=== PATIENT | female | born 1970 | race Caucasian/White ===

== ENCOUNTER → 2018-12-27 12:38 | Outpatient (CLI) | payer OTHER, MEDICAID, SELFPAY ==
--- NOTE | 2018-12-27 | DI.US.S_ITS ---
PROCEDURE: US ABDOMEN COMPLETE INDICATIONS: BENIGN NEOPLASM OF LIVER TECHNIQUE: Real-time scanning was performed of the abdominal and retroperitoneal organs, with image documentation. COMPARISON: [facility], CT, ABDOMEN/PELVIS WITH CONTRAST, 01/14/2018, 21:01. FINDINGS: Liver: Liver measures 17.9 cm in length and demonstrates normal echotexture. No discrete focal hepatic mass identified Gallbladder: Surgically absent Biliary ducts: Intrahepatic bile ducts are non-dilated. Extrahepatic bile duct caliber measures 4 mm. Normal is 6-7 mm or less in diameter, or 10 mm or less post-cholecystectomy. Pancreas: Visualized portions of the pancreas are sonographically normal. Spleen: Spleen is normal in size and homogeneous in echotexture. Kidneys: Kidneys are normal in size and echotexture. Right kidney measures 10.2 cm long; left kidney measures 10.5 cm long. No hydronephrosis or nephrolithiasis. No solid masses. Aorta: Visualized aorta is normal in caliber at less than 3 cm. Iliacs: Proximal common iliac arteries are normal in caliber at less than 2.5 cm. IVC: Intrahepatic inferior vena cava is patent. Miscellaneous: No free abdominal fluid. IMPRESSION: No discrete focal hepatic lesion is sonographically visible. If clinically warranted, cross-sectional evaluation with contrast-enhanced CT or MRI could be performed. Elsewhere, negative examination. Status post cholecystectomy. Dictated by: Barron Garcia M.D. on 12/27/2018 at 15:24 Approved by: Barron Garcia M.D. on 12/27/2018 at 15:29
== END ==
DX: D13.4 Benign neoplasm of liver (principal); Z90.49 Acquired absence of other specified parts of digestive tract
CPT/HCPCS: 76700

== ENCOUNTER 2020-01-04 20:22 | Emergency (ER) | payer OTHER, MEDICAID, SELFPAY ==
[2020-01-04 20:35] VITALS: BP 131/91; PULSE 74; RESP 15; TEMP 36.7; O2SAT 97; BMI 28.8
[2020-01-04 21:38] VITALS: BP 125/78; PULSE 60; RESP 16; O2SAT 100
--- NOTE | 2020-01-04 22:14 | ED_ITS ---
HPI - Abdominal Pain General Chief Complaint: Abdominal Pain Stated Complaint: severe abdominal pain Time Seen by Provider: 01/04/20 21:37 Source: patient Mode of arrival: Family Vehicle Limitations: no limitations History of Present Illness HPI narrative: 49-year-old woman with a history of multiple bowel surgeries. Initially presented with what sounds like a volvulus approximately 5 years ago that sound like it was treated with decompression and an open laparotomy that found adhesions that were removed. Two years ago with recurrence symptoms with at partial bowel resection at that time. Over the last 3 days she has been having increasing right-sided abdominal pain similar to both previous obstruction episodes. She has had decreased bowel movement and decreased gas but with laxatives as well as stool softener she she was able to pass some stool today. Eating very little food as food was the precipitating events with both prior episodes of obstruction. She describes no fever, vomiting, chills, cough, dyspnea, orthopnea, chest pain Related Data Home Medications Medication Instructions Recorded Confirmed levonorgestrel [Mirena] 52 mg INTRAU #0 01/14/18 Previous Rx's Medication Instructions Recorded enoxaparin [Lovenox] 40 mg SQ Q24H #10 syr 01/18/18 Allergies Allergy/AdvReac Type Severity Reaction Status Date / Time No Known Drug Allergies Allergy Verified 01/04/20 20:35 Review of Systems Review of Systems Narrative: Remainder of review is otherwise unremarkable Patient History Medical History (Updated 01/05/20 @ 02:09 by Carolina Schmitt MD) Cecal volvulus (Acute) Surgical History (Updated 01/05/20 @ 01:19 by Carolina Schmitt MD) History of bowel resection (Acute) Social History Smoking Status: Never smoker Smoking Status: Never smoker alcohol intake frequency: 0-2 drinks per day Alcohol type: hard liquor Substance Use Type: does not use Exam Narrative Exam Narrative: General: Healthy appearing, in no acute distress. Able to give a complete and coherent history. Well-nourished well-developed HEENT: Moist mucous membranes, normal sclera with reactive pupils, Neck: No JVD, supple Respiratory: Lungs are clear to auscultation, no wheezing no rales no rhonchi. Full and symmetrical air movement Cardiac: Regular rate and rhythm no murmurs no bruits Abdomen: Soft, tender along the right side of her anterior abdomen with diminished but notable bowel tones, there is no rebound or guarding. No flank pain. Skin: Warm and dry, no rashes Neurologic: Grossly neurologically intact with no obvious asymmetries or abnormalities Extremities: No trauma, well perfused Psych: Cooperative, appropriate insight and affect Initial Vital Signs Initial Vital Signs: Vital Signs Temperature 98.1 F 01/04/20 20:35 Pulse Rate 74 01/04/20 20:35 Respiratory Rate 15 01/04/20 20:35 Blood Pressure 131/91 H 01/04/20 20:35 Pulse Oximetry 97 01/04/20 20:35 Course Orders Ordered: ED Orders 01/04/20 20:44 Complete Blood Count AUTO DIFF Stat Comprehensive Metabolic Panel Stat Lipase Stat 01/04/20 22:15 XR abdomen min 2V Stat 01/05/20 00:14 CT abdomen pelvis w con Stat Sodium Chloride (Normal Saline 0.9%) 1,000 mls @ 150 mls/hr IV CONT JAZMIN Last Infusion: 01/05/20 02:11 Dose: 0 mls/hr Documented by: Admin: 01/04/20 22:34 Dose: 150 mls/hr Documented by: OSVALDO Discontinued Medications Dexamethasone (Decadron) 10 mg IV NOW ONE Stop: 01/05/20 02:06 Dexamethasone (Decadron) 12 mg PO NOW ONE Stop: 01/05/20 02:10 Hydromorphone HCl (Dilaudid) 0.5 mg IV NOW ONE Stop: 01/04/20 22:16 Last Admin: 01/05/20 00:29 Dose: Not Given Documented by: OSVALDO Ondansetron HCl (Zofran) 4 mg IV NOW ONE Stop: 01/04/20 22:16 Last Admin: 01/05/20 00:29 Dose: Not Given Documented by: OSVALDO Oxycodone/Acetaminophen (Endocet 5/325 Prepack) 1 bottle MISC SEEINSTR ONE Stop: 01/05/20 02:06 Vital Signs Vital signs: Vital Signs - 8 hr 01/04/20 20:35 01/04/20 21:38 01/04/20 22:49 Temperature 98.1 F Pulse Rate 74 60 69 Respiratory Rate 15 16 16 Blood Pressure 131/91 H Blood Pressure [Right Arm] 125/78 124/90 Pulse Oximetry 97 100 97 01/04/20 23:30 01/05/20 00:00 01/05/20 00:30 Temperature Pulse Rate 59 L 58 L 66 Respiratory Rate 15 14 16 Blood Pressure Blood Pressure [Right Arm] 107/69 114/65 121/81 Pulse Oximetry 94 95 98 01/05/20 02:01 Temperature Pulse Rate 80 Respiratory Rate 21 Blood Pressure Blood Pressure [Right Arm] 121/81 Pulse Oximetry 99 MDM - Abdominal Pain Medical Records Attestation: I reviewed the patient's medical records. Lab Data Attestation: I reviewed the patient's lab results. Result diagrams: 01/04/20 20:44 01/04/20 20:44 Labs: Lab Results 01/04/20 01/04/20 Range/Units 20:44 20:44 WBC 7.4 (4.5-11.0) X10^3/uL RBC 4.52 (4.0-5.2) X10^6/uL Hgb 13.4 (12.0-16.0) g/dL Hct 39.5 (36-46) % MCV 87.4 (80-100) fL MCH 29.5 (26-34) PG MCHC 33.8 (30-36) % RDW 13.5 (11.6-14.8) % Plt Count 238 (150-400) X10^3/uL Neut % (Auto) 62.8 (50-75) % Lymph % (Auto) 26.0 (25-40) % Vermilion % (Auto) 7.6 (3-14) % Eos % (Auto) 3.0 (2-4) % Baso % (Auto) 0.6 (0-2) % Neut # (Auto) 4600 (8428-6637) /uL Lymph # (Auto) 1900 (2299-3308) /uL Vermilion # (Auto) 600 (0-900) /uL Eos # (Auto) 200 (0-450) /uL Baso # (Auto) 0 (0-100) /uL Sodium 138 (137-145) mmol/L Potassium 3.7 (3.4-5.1) mmol/L Chloride 104 (98-107) mmol/L Carbon Dioxide 26 (22-32) mmol/L BUN 11 (7-17) mg/dL Creatinine 0.70 (0.52-1.04) mg/dL Estimated GFR > 60.0 (>60) mL/min BUN/Creatinine Ratio 15.7 (6-22) Glucose 95 (70-100) mg/dL Calcium 9.0 (8.4-10.2) mg/dL Total Bilirubin 0.5 (0.2-1.3) mg/dL AST 24 (14-36) IU/L ALT 17 (<35) IU/L Alkaline Phosphatase 69 (38-126) U/L Total Protein 7.2 (6.3-8.2) g/dL Albumin 4.2 (3.5-5.0) g/dL Globulin 3.0 (1.7-4.1) g/dL Albumin/Globulin Ratio 1.4 (1.0-2.8) Lipase 51 (23-300) U/L Point of care testing: Urine Dip Bedside Urine Glucose Negative Bedside Urine Bilirubin - Negative Bedside Urine Ketone +/- 5 Urine Specific Weston 1.030 Bedside Urine Occult Blood - Negative Bedside Urine pH 5.5 Bedside Urine Protein +/- 15 Bedside Urine Urobilinogen +/- 1mg Bedside Urine Nitrite - Negative Bedside Urine Leukocytes - Negative Esterase Imaging Data Abdominal x-ray: Attestation: I personally reviewed and interpreted this imaging study as follows: My Impression: Nonspecific bowel gas pattern without obvious small-bowel obstruction CT scan - abdomen/pelvis: Radiologist's Impression: 1.5 syndrome meter opaque foreign body located at the right abdominal bowel anastomosis with surrounding foreign body reaction MDM Narrative Medical decision making narrative: Three days of increasing right-sided abdominal pain similar to prior bowel obstruction presentations. CT scan suggests the foreign body at the anastomosis site. Will review with surgery for management recommendations at this time. Case is reveiwed with Dr Bella and she has reveiwed the CT scan. Safe for home discharge at this time with office follow up tomorrow. Retrurn to ER if worse prior to that. Discharge Plan Departure Patient Disposition: Home Clinical Impression: Abdominal pain Qualifiers: Abdominal location: right lower quadrant Qualified Code(s): R10.31 - Right lower quadrant pain Activity Restrictions/Additional Instructions: Thank you for coming in today. You do not have an acute obstruction or a recurrent volvulus. Your CT scan does show some inflammation at the site of your previous surgery. I have given you a dose of Decadron in the emergency room today to try and reduce some of the swelling around that site to hopefully allow air and stool to pass easier. I reviewed your CT scan with Dr. Garcia, our surgeon electronic instrument trades worker this evening. There clearly is an abnormality on the CT scan at the prior surgery site but it does not look like an acute emergency and you do not need to stay in the hospital. She would like to see you in clinic tomorrow afternoon at 1:45 a.m.. Please call the clinic 1st thing tomorrow morning to confirm that time It is okay to use a couple of Percocet if the pain is severe however if you are becoming more distended and no longer passing gas at all you do need to return to the emergency department. I hope you feel better soon Prescriptions: No Action levonorgestrel [Mirena] 1 EACH intrauterine device 52 mg INTRAU Qty: 0 RF: 0 enoxaparin [Lovenox] 40 MG/0.4 ML syringe 40 mg SQ Q24H Qty: 10 RF: 0 Referrals: Laine Bella MD [Physician] - (call in the am to confirm 1:45 appt on 01/05)
--- NOTE | 2020-01-04 22:15 | DI.RAD.S_ITS ---
PROCEDURE: XR ABDOMEN MIN 2V INDICATIONS: possible bowel obstruction TECHNIQUE: 2 views of the abdomen were acquired. COMPARISON: [facility], , US ABDOMEN COMPLETE, 12/27/2018, 13:06. FINDINGS: Surgical changes and devices: Cholecystectomy clips. Hyroid CT uterus with Bowel: No pneumoperitoneum. A few air-fluid levels are noted. There is relative paucity of colonic gas. Soft tissues: No masses; visualized solid organ contours appear normal in size. No suspicious abdominal calcifications. Bones: No suspicious bony abnormalities. IMPRESSION: Nonspecific bowel gas pattern. Dictated by: Maryjane Du M.D. on 01/05/2020 at 9:07 Approved by: Maryjane Du M.D. on 01/05/2020 at 9:09
[2020-01-04] MEDS: SODIUM CHLORIDE 0.9% 1,000 ML 150 ML IV (22:34)
[2020-01-04 22:43] LABS: Add Manual Diff / Slide Review NO; Basophils Absolute Auto 0 /uL (0-100); Basophils Percent Auto 0.6 % (0-2); Eosinophils Absolute Auto 200 /uL (0-450); Hematocrit 39.5 % (36-46); Hemoglobin 13.4 g/dL (12.0-16.0); Lymphocytes Absolute Auto 1900 /uL (1100-4500); Mean Corpuscular HGB Conc 33.8 % (30-36); Mean Corpuscular Hemoglobin 29.5 PG (26-34); Mean Corpuscular Volume 87.4 fL (80-100); Monocytes Absolute Auto 600 /uL (0-900); Monocytes Percent Auto 7.6 % (3-14); Neutrophils Absolute Auto 4600 /uL (1500-7000); Neutrophils Percent Auto 62.8 % (50-75); Platelet Count 238 X10^3/uL (150-400); Red Blood Cell Count 4.52 X10^6/uL (4.0-5.2); Red Cell Distribution Width 13.5 % (11.6-14.8); White Blood Cell Count 7.4 X10^3/uL (4.5-11.0)
[2020-01-04 22:46] LABS: Alanine Aminotransferase 17 IU/L (<35); Albumin 4.2 g/dL (3.5-5.0); Albumin Globulin Ratio 1.4 (1.0-2.8); Alkaline Phosphatase 69 U/L (38-126); Aspartate Aminotransferase 24 IU/L (14-36); BUN Creatinine Ratio 15.7 (6-22); Bilirubin Total 0.5 mg/dL (0.2-1.3); Blood Urea Nitrogen 11 mg/dL (7-17); Carbon Dioxide 26 mmol/L (22-32); Chloride 104 mmol/L (98-107); Estimated Glomerular Filt Rate > 60.0 mL/min (>60); Glucose 95 mg/dL (70-100); HEMOLYSIS < 15 (0-50); Lipase 51 U/L (23-300); Potassium 3.7 mmol/L (3.4-5.1); Sodium 138 mmol/L (137-145); Total Protein 7.2 g/dL (6.3-8.2)
[2020-01-04 22:49] VITALS: BP 124/90; PULSE 69; RESP 16; O2SAT 97
[2020-01-04 23:30] VITALS: BP 107/69; PULSE 59; RESP 15; O2SAT 94
[2020-01-05] VITALS: BP 114/65; PULSE 58; RESP 14; O2SAT 95
--- NOTE | 2020-01-05 00:14 | DI.CT.S_ITS ---
PROCEDURE: CT ABDOMEN PELVIS W CON INDICATIONS: left side abdominal pain. History of volvulus TECHNIQUE: After the administration of intravenous contrast, 5 mm thick sections acquired from the diaphragm to the symphysis. 5 mm coronal and sagittal reformats were acquired. For radiation dose reduction, the following was used: automated exposure control, adjustment of mA and/or kV according to patient size. COMPARISON: [facility], US, US ABDOMEN COMPLETE, 12/27/2018, 13:06. [facility], CT, ABDOMEN/PELVIS WITH CONTRAST, 01/14/2018, 21:01. FINDINGS: Image quality: Excellent. ABDOMEN: Lung bases: Lung bases are clear. Heart size is normal. Solid organs: Liver is normal in size and enhancement. Gallbladder is surgically absent. Biliary system is non dilated. Pancreas enhances normally. Spleen is normal in size and enhancement. No adrenal nodules. Kidneys demonstrate normal size and enhancement, without hydronephrosis. Peritoneum and bowel: There is edema at EG junction. Gastric antral thickening is noted. There are post surgical changes cecum with a surgical suture at the site of anastomosis. A 1.3 x 1.5 cm radiopaque density is noted. Mild stranding is present in the area. Bowel loops demonstrate normal wall thickness and caliber. No free fluid or air. Nodes and vessels: No retroperitoneal or mesenteric adenopathy by size criteria. Aorta and inferior vena cava are normal in size. Miscellaneous: No ventral hernias. PELVIS: Genitourinary: Bladder wall thickness is normal. There is an IUD in uterus. Miscellaneous: No inguinal hernias or adenopathy. Bones: No suspicious bony lesions. No vertebral body compression fractures. IMPRESSION: 1. Edema at the GE junction. Consider upper endoscopy or upper GI series for full evaluation. 2. Gastric antral thickening, which may be secondary to peptic ulcer disease or artifact from peristalsis. 3. There are post surgical changes cecum with a surgical suture at the site of anastomosis. A 1.3 x 1.5 cm radiopaque density is noted. Mild stranding is present in the area. There is no findings to suggest small bowel obstruction. Dictated by: Maryjane Du M.D. on 01/05/2020 at 8:37 Approved by: Maryjane Du M.D. on 01/05/2020 at 8:47
[2020-01-05 00:30] VITALS: BP 121/81; PULSE 66; RESP 16; O2SAT 98
[2020-01-05 02:01] VITALS: BP 121/81; PULSE 80; RESP 21; O2SAT 99
[2020-01-05] MEDS: OXYCODONE/APAP 5/325 PREPACK 1 BOTTLE MISC (02:16)
[2020-01-05] MEDS: dexAMETHasone 4 MG TABLET 12 MG PO (02:16)
== END 2020-01-05 02:34 | disposition home or self-care (01) ==
PROVIDERS: Emergency Provider Emergency Medicine
DX: R10.31 Right lower quadrant pain (principal); Z90.49 Acquired absence of other specified parts of digestive tract
CPT/HCPCS: 36415; 74019; 74177; 80053; 81003; 83690; 85025; 96360; 96361; 99284; Q9967

== ENCOUNTER 2020-01-12 08:26 | Day surgery (SDC) | payer OTHER, MEDICAID, SELFPAY ==
--- NOTE | 2020-01-12 | PATH_ITS ---
[facility] Accession Number: [id number] . 01 Material submitted: . PART A: rectum - RECTAL POLYP 15CM PART B: body - NO SITE DESIGNATED . 02 Diagnosis: A. Rectal Polyp at 15 cm: Tubular adenoma. . B. No Site Designated: Colorectal mucosa with mild hyperplastic mucosal change; negative for dysplasia or malignancy. [facility] 01/15/2020 1702 Local . 02 Electronically signed: . Shana Argueta MD, Pathologist NPI- [id number] . 01 Gross description: . Part A: RECTAL POLYP 15CM: Received in formalin is 1 fragment(s) of cordova, soft tissue measuring 0.6 x 0.6 x 0.5 cm submitted entirely in 1 cassette(s) Part B: NO SITE DESIGNATED: Received in formalin is 1 fragment(s) of cordova, soft tissue measuring 0.3 x 0.2 x 0.2 cm submitted entirely in 1 cassette(s) /[facility] 01/12/2020 2042 Local . 02 Pathologist provided ICD-10: K63.5 . 02 CPT . 742601, [id number] Performed at: 01 [facility] [address] [facility], [place], [place] [id number] MD Mykel Gabriel MD Phone: [phone] Performed at: 02 [facility] [address] [place], [place] [id number] MD Kelley Hunt MD Phone: [phone]
[2020-01-12 09:15] VITALS: BP 122/87; PULSE 63; RESP 16; TEMP 36.2; O2SAT 99; BMI 27.8
--- NOTE | 2020-01-12 10:09 | PM.PREOP ---
Pre-operative Note Interval Note History & Physical reviewed/Exam performed by Physician: Yes Changes to H&P: Yes H&P completed within 30 days and has changed as indicated here:: Patient feeling much better since using Metamucil, her abdominal pain has resolved. ASA Class (for procedural sedation): II
[2020-01-12] MEDS: fentaNYL 250 MCG/5 ML INJ IV (10:29)
[2020-01-12] MEDS: MIDAZOLAM 5 MG/5 ML VIAL IV (10:29)
--- NOTE | 2020-01-12 10:46 | PM.OP.ENDO ---
Operative Date/Time/Diagnoses Date of procedure: 01/12/20 Time of procedure: 10:46 Pre-op diagnosis: History of cecal volvulus and surgical resection, recurrent abdominal pain and change in bowel habit Post-op diagnosis: other (Hypercellular appearance ileocolonic anastomosis, calcified callie at anastomosis, 1 cm rectal polyp) Procedure & Clinicians Study performed: Diagnostic colonoscopy, biopsy of ileo colic anastomosis with cold forceps, resection of rectal polyp with cold snare Same procedure as scheduled: Yes Indications: History of cecal volvulus, with cecal resection and ileocolonic anastomosis, abdominal pain, change in bowel habits Surgeon: Laine Bella Procedure Notes SCOAP/Timeout: Performed Procedure in detail: The patient was brought to the room and placed in left lateral decubitus position with all bony prominences padded. A time-out was performed and then the patient was given procedural sedation starting with [4] mg of Versed and [100] mcg of fentanyl. Total of 5 mg of Versed and 200 micro g of fentanyl was given for the entire procedure. Vitals were monitored throughout the procedure and remained stable. Once adequately sedated the procedure was begun. A rectal exam was performed revealing [no abnormalities]. The colonoscope was then introduced to the rectum and advanced to the ileocolic anastomosis in the usual fashion. []The anastomosis was identified by the staple line, and proximal ileum. There were several callie present, and 1 with a significant calcifications surrounding it. This is likely the cause of her calcifications seen at the anastomosis on her CT scan recently in the ER. There was some heaped up mucosa around this area at the anastomosis, which was biopsied. It was moderately inflamed appearing and friable. The scope was then retracted while rotating side to side and examining each mucosal fold. A 15 cm in the rectum a 1 cm pedunculated polyp was seen. It was removed with cold snare and sent for pathology. [] At the conclusion of the procedure retroflexion was performed and [low-grade internal hemorrhoids without stigmata of bleeding were seen]. The scope was then withdrawn from the rectum the procedure was concluded. The patient tolerated the procedure well and was transferred to the PACU in stable condition. Scope withdrawal time: 10 Sedation minutes: 30 Findings: polyp and other findings (Calcified callie at anastomosis, heaped up mucosa) Specimen(s): other (Biopsy of ileocolic anastomosis, rectal polyp) Complications: none Impression: Inflammation at ileocolic anastomosis, calcification of ileocolic anastomosis, adenomatous appearing rectal polyp Post-procedure Recommendations: Colonscopy in 10 years (Depending on pathology results may be recommended sooner.) Follow up: as needed Disposition: PACU
[2020-01-12 10:52] VITALS: BP 128/85; PULSE 63; RESP 14; TEMP 36.8; O2SAT 97
[2020-01-12 10:56] VITALS: BP 111/75; PULSE 63; RESP 14; O2SAT 95
[2020-01-12 11:00] VITALS: BP 112/80; PULSE 72; RESP 14; O2SAT 94
[2020-01-12 11:03] VITALS: BP 123/86; PULSE 64; RESP 14; O2SAT 99
== END 2020-01-12 11:20 | disposition home or self-care (01) ==
PROVIDERS: Referring Provider Surgery; Visit Provider Surgery
PROC: 0DJD8ZZ Inspection of Lower Intestinal Tract, Via Natural or Artificial Opening Endoscopic (ICD-10-PCS; CPT 45378; principal; 2020-01-12 10:00)
DX: R10.9 Unspecified abdominal pain (principal); Z90.49 Acquired absence of other specified parts of digestive tract; R19.4 Change in bowel habit; K64.8 Other hemorrhoids; K62.1 Rectal polyp
CPT/HCPCS: 45385; 45380; 99152; 99153; J2250; J3010